=== PATIENT | female | born 1955 | race Two or more races ===

== ENCOUNTER 2024-05-16 09:32 | Outpatient (AMB) | payer MEDICARE, MEDICAID, SELFPAY ==
--- NOTE | 2024-05-16 09:40 | PD.ORTHCLVIS ---
Vital signs 05/16/24 09:41 Height 1.55 m Height Method Stated Weight 83.688 kg Weight Measurement Method Standing Scale BMI 34.8 BP 179/98 H Blood Pressure Source Automatic Cuff Blood Pressure Location Right Upper Arm Position Sitting Respiration 19 Pulse 66 Pulse Source Monitor Temp 97.2 F Temp Source Temporal Artery Scan Pulse Oximetry (%) 98 Oxygen Delivery Method Room Air Med/Allergies Allergies & Medications Allergies No Known Allergies Allergy (Verified 05/16/24 09:42) Medication Reconciliation Unobtainable 05/16/24 [History Confirmed 05/16/24] Subjective Visit Visit for: new patient and knee Immunization / Flu Flu Vaccine in the Last 12 Months: No Flu Vaccine Exclusion Criteria: Already Received History of Present Illness Chief complaint: BILATERAL KNEE OA Block is a pleasant 68-year-old female with bilateral knee pain and bilateral knee arthritis. She actually reports that she is doing well. She is taking oral diclofenac. She has a history of vein issues as well. She reports that she is walking with no assistive device and is actually happy with how she is doing Personal History Hobbies: COOKING Red flag PMH: none Pain Pain level (0-10): 0 Associated signs & symptoms: none Ambulatory data Ambulatory device: none Review of Systems Review of Systems: All systems negative unless otherwise noted in HPI. Exam Exam Patient is in no acute distress and is cooperative with the examination today. Breathing is nonlabored. In no respiratory distress. Bilateral extremities were evaluated and demonstrates sensation intact to light touch. Palpable pedal pulses are present. No significant edema is present. Bilateral hips were examined. The patient has no pain with log roll of the hips. Internal rotation to 30 degrees and external rotation to 30 degrees is painless. Negative FADIR. The left knee was examined. The left knee is in [varus] alignment. Range of motion from [0-115] degrees. Knee is stable to varus and valgus as well as AP translation with <5mm. Patient has a [negative] Mc[place]. There is [no] pain with patellofemoral compression and [no] crepitus noted. The knee is [tender] to palpation [medially]. The right knee was also examined. The right knee is in [varus] alignment. Range of motion from [0-120] degrees. Knee is stable to varus and valgus as well as AP translation with <5mm. Patient has a [negative] Mc[place]rays. There is [no] pain with patellofemoral compression and [no] crepitus noted. The knee is [tender] to palpation [medially]. Bilateral knee x-rays were reviewed from [facility]. This demonstrates moderate arthritis moderate joint space narrowing. Assessment and Plan Problem List (1) Degenerative arthritis of knee, bilateral: Status: Acute Plan: Patient is a pleasant 68-year-old female with bilateral knee pain and bilateral arthritis. The pain is actually mild at this time. She is done well with conservative treatment with injections and anti-inflammatories. We can give her an injection if needed at the next visit. Will continue with the oral diclofenac for now Advanced Care Planning Discussion Advance care planning discussed with:: patient Office Procedures GNS Level of Care Nursing/Assessment Patient Status: Initial/New Patient Nursing Assessment/Reassesment: Update PMH in EMR and Vital Signs Coordination of Care: Complex Care/Chronic Disease 5 or more, Education Complex Pt/Fam, Consent,records obtained, informed consent and Staff clarify orders New Patient Charge New Patient Point Assignment: 1094 New Patient Point Charge: CONTROLLED AREA CHECKER Level 3 ([id number]) Past Medical History Past Medical History Have you ever been diagnosed with any of the following: Cardiology Problems Hypertension: Yes Respiratory Problems Smoking: No Smoking Exposure: No Surgical History Additional Surgical History: CSECTION X4
[2024-05-16 09:41] VITALS: BP 179/98; PULSE 66; RESP 19; TEMP 36.2; O2SAT 98; BMI 34.8
== END 2024-05-16 10:21 | disposition home or self-care (01) ==
PROVIDERS: PCP Family Medicine; Referring Provider Family Medicine; Supervising Provider Orthopaedic Surgery Adult Reconstructive Orthopaedic Surgery; Visit Provider Orthopaedic Surgery Adult Reconstructive Orthopaedic Surgery
DX: M17.0 Bilateral primary osteoarthritis of knee (principal); I10 Essential (primary) hypertension
CPT/HCPCS: 99203; G0463